=== PATIENT | male | born 1955 | race Caucasian/White ===

== ENCOUNTER 2020-09-10 15:05 | Inpatient (IN) | payer MEDICARE ==
[~2020-09-10] VITALS: Ht 175.2 cm; Wt 79.5 kg
[2020-09-10] MEDS ORDERED: ASPIRIN ADULT L81 M2 PO (16:03)
[2020-09-10] MEDS ORDERED: BASAG SOL SC (16:08)
[2020-09-10] MEDS ORDERED: GLYCOLAX119 GM PO (16:12)
[2020-09-10] MEDS ORDERED: PRAVASTATIN SOD40 MG PO (16:18)
[2020-09-10] MEDS ORDERED: B-1100 M1 PO (16:20)
[2020-09-10] MEDS ORDERED: TYLENOL325 M1 PO (16:21)
[2020-09-10] MEDS ORDERED: OLANZAPINE15 M2 PO (16:45)
[2020-09-10] MEDS ORDERED: OLANZAPINE10 MG PO (16:48)
[2020-09-10] MEDS ORDERED: SERTRALINE HYD100 MG PO (16:49)
[2020-09-10] MEDS ORDERED: NOVOLOG FL100 UNIT/2 SC (17:11)
[2020-09-10 20:00] VITALS: BP 112/60
[2020-09-10 22:21] LABS: BILIRUBIN Negative (Negative); BLOOD Trace-Lysed (Negative); CLARITY Clear (Clear); COLOR Yellow (Yellow); GLUCOSE Trace (Negative); KETONE Negative (Negative); LEUKO ESTERASE Negative (Negative); NITRITE Negative (Negative)
[2020-09-10 22:52] LABS: WBC 0-2 wbc/hpf (0-5)
[2020-09-11 06:25] LABS: BASO # 0.1 10*3/uL (0.0-0.1); BASO % 0.8 % (0.0-1.0); EOS # 0.3 10*3/uL (0.0-0.4); EOS % 4.5 % (1.0-4.0); HEMATOCRIT 36.8 % (42.0-52.0); LYMPH # 2.1 10*3/uL (1.3-4.4); LYMPH % 28.6 % (27.0-41.0); MEAN CELL VOLUME 86.6 fl (80.0-94.0); MEAN CORPUSCULAR HGB 27.8 pg (27.0-31.0); MEAN CORPUSCULAR HGB CONC 32.1 g/dl (33.0-37.0); MEAN PLATELET VOLUME 10.4 fl (9.6-12.3); MONO # 0.7 10*3/uL (0.1-1.0); MONO % 9.4 % (3.0-9.0); NEUT % 56.4 % (47.0-73.0); PLATELET COUNT AUTOMATED 278 10*3/uL (130-400); RED BLOOD COUNT 4.25 10*6/uL (4.50-5.90); RED CELL DISTRI WIDTH 14.4 % (0-14.5); WHITE BLOOD COUNT 7.2 10*3/uL (4.8-10.8)
[2020-09-11 06:30] LABS: ALBUMIN 3.1 gm/dl (3.1-4.5); BUN 31 mg/dl (7-24); CHLORIDE 106 mmol/L (98-107); CHOLESTEROL 170 mg/dL (<200); CREATININE 1.03 mg/dL (0.70-1.30); SGOT/AST 13 IU/L (3-35); SGPT/ALT 13 U/L (12-78); SODIUM 139 mmol/L (136-145); TRIGLYCERIDES 77 mg/dl (<150)
[2020-09-11 06:39] LABS: ALKALINE PHOSPHATASE 82 U/L (45-117); LDL CHOLESTEROL 119 mg/dL (9-159); TOTAL PROTEIN 7.3 gm/dL (6.4-8.2)
[2020-09-11 07:35] VITALS: BP 110/62
[2020-09-11 08:17] LABS: VITAMIN D, 25-HYDROXY 16.7 ng/mL (30-100)
[2020-09-11 20:00] VITALS: BP 164/63
[2020-09-12 07:10] VITALS: BP 157/82
[2020-09-12 19:18] VITALS: BP 156/70
[2020-09-13 07:46] VITALS: BP 158/74
[2020-09-13 20:00] VITALS: BP 180/76
[2020-09-14 07:41] VITALS: BP 160/66
[2020-09-14 20:00] VITALS: BP 116/62
[2020-09-15 07:01] LABS: BILIRUBIN Negative (Negative); BLOOD Negative (Negative); CLARITY Clear (Clear); COLOR Yellow (Yellow); GLUCOSE Negative (Negative); KETONE Negative (Negative); LEUKO ESTERASE Negative (Negative); NITRITE Negative (Negative); PH 6.5 (4.5-8.0); SPECIFIC GRAVITY 1.015 (1.001-1.030)
[2020-09-15 07:10] LABS: BACTERIA TRACE
[2020-09-15 07:17] VITALS: BP 158/76
[2020-09-15 19:21] VITALS: BP 182/92
[2020-09-15 20:07] VITALS: BP 174/76
[2020-09-16 07:43] VITALS: BP 135/79
[2020-09-16 20:00] VITALS: BP 113/56
[2020-09-17 08:00] VITALS: BP 169/75
[2020-09-17 20:00] VITALS: BP 133/76
[2020-09-18 08:06] VITALS: BP 152/72
[2020-09-18 20:00] VITALS: BP 161/74
[2020-09-19 07:32] VITALS: BP 145/63
[2020-09-19] MEDS ORDERED: NORVASC2.5 MG PO (09:57)
== END 2020-09-19 17:01 | DRG 885 ==
LOC: EDBD → 3N 15:05
PROVIDERS: Registered Nurse; ADMIT Psychiatry & Neurology Psychiatry; ATTEND Psychiatry & Neurology Psychiatry
DX: F25.9 Schizoaffective disorder, unspecified (principal); F33.9 Major depressive disorder, recurrent, unspecified; F22 Delusional disorders; I10 Essential (primary) hypertension; E78.2 Mixed hyperlipidemia; G30.9 Alzheimer's disease, unspecified; F02.80 Dementia in other diseases classified elsewhere, unspecified severity, without behavioral disturbance, psychotic disturbance, mood disturbance, and anxiety; D64.9 Anemia, unspecified; E11.42 Type 2 diabetes mellitus with diabetic polyneuropathy; Z79.4 Long term (current) use of insulin; Z79.82 Long term (current) use of aspirin; Z79.899 Other long term (current) drug therapy; Z20.822 Contact with and (suspected) exposure to COVID-19